=== PATIENT | male | born 1950 | race Caucasian/White ===

== ENCOUNTER → 2017-04-12 | Outpatient (CLI) | payer OTHER ==
[~2017-04-12] MED LIST: IOPAMIDOL (ISOVUE-300) 100 ML BTL ONE
== END ==
LOC: CIMAGING 14:15
PROVIDERS: ATTEND Internal Medicine
DX: N20.0 Calculus of kidney (principal); I70.0 Atherosclerosis of aorta; Z90.89 Acquired absence of other organs
CPT/HCPCS: 74170; Q9967